=== PATIENT | female | born 1950 | race Caucasian/White ===

== ENCOUNTER → 2018-07-13 | Outpatient (CLI) | payer OTHER, BC ==
[~2018-07-13] VITALS: Ht 160 cm; Wt 61.2 kg
[~2018-07-13] MED LIST: BENTYL 10 MG CA10 M1 PO; LOPRESSOR50 PO; NEURONTIN 300300 M1 PO; SPIRONOLACTONE25 M1 PO; VALIUM5 MG PO; VITAMIN D5000 UNIT PO
--- NOTE | 2018-07-13 17:49 | P ---
[facility] [place] [address] PROCEDURE REPORT Name: YUKI GARCIAS Room #: REG [facility]#: [id number] Admission: 07/13/18 Attend Phys: Sarabjit Au MD Discharge: Date of : 46 Report #: [id number] THIS REPORT FOR: //name// CC: Sarabjit Bui MD BRIEF HISTORY: The patient is a 67-year-old woman with a family history of colon cancer, father in his 60s. PREOPERATIVE DIAGNOSIS: High risk screening. POSTOPERATIVE DIAGNOSES: 1. Diminutive polyp of proximal ascending colon. 2. Diverticulosis coli. MEDICATIONS: Deep sedation with propofol per anesthesia. SPECIMEN: Polyp from proximal ascending colon. ESTIMATED BLOOD LOSS: 3 mL. PROCEDURE: Colonoscopy to cecum and terminal ileum with biopsy. FINDINGS: Prior to propofol sedation, procedure of colonoscopy was discussed with the patient as well as potential risks, benefits and complications. She indicates she understands and desires to proceed. With the patient in the left lateral decubitus position, digital examination was completed, which revealed no abnormalities. Subsequently, the Olympus video colonoscope was introduced in the rectum and advanced under direct vision to the cecum. Done with minimal difficulty. The cecum was identified by the ileocecal valve and the appendiceal orifice. I was able to visualize the distal segment of the terminal ileum, which was inspected and noted to be unremarkable. At that point, scope was slowly withdrawn and careful circumferential views were obtained. Upon slow withdrawal of the scope, the prep was good. The mucosa was within normal limits, normal vascular pattern and normal light reflex. As we withdrew the scope, she was found to have a diminutive polyp in the very proximal ascending colon, which was removed by biopsy. The scope was further withdrawn and no additional neoplastic lesions were seen on this examination. She was noted to have diverticular disease scattered throughout the colon with a medium sized diverticula scattered about the ascending colon, in the transverse colon as well as the descending colon. There was noted to be moderately severe diverticular disease in the sigmoid colon without endoscopic evidence of diverticulitis. The mucosa was otherwise within normal limits throughout the entire colon. The scope was withdrawn in the rectum. Upon retroflexion, no abnormalities were seen. The scope was withdrawn. The patient tolerated the [address] [address] PROCEDURE REPORT Name: YUKI GARCIAS Room #: REG [facility].#: [id number] Admission: 07/13/18 Attend Phys: Sarabjit Au MD Discharge: Date of : 46 Report #: [id number] procedure well. CONDITION OF THE PATIENT UPON DISCHARGE: Following procedure, the patient drowsy, arousable and conversant. She will be discharged home when fully ambulatory. INSTRUCTIONS TO THE PATIENT AND FAMILY AT THE TIME OF DISCHARGE: We will follow up on the path of the polyp. However, in view of her personal family history, I would suggest she return in 5 years for followup colon exam. Also suggest high-fiber diet due to her diverticular disease. She does have a history of irritable bowel syndrome. She has been using dicyclomine. She may continue the dicyclomine as needed and also be cautious of potential side effects. She has had some upper abdominal pain. Please see upper endoscopy report for additional details. If she continues to have symptoms, she will return to see me in followup in the office. Last colonoscopy was more than 5 years ago. Withdrawal time from the cecum was 11 minutes and 34 seconds. <ELECTRONICALLY SIGNED> By: Sarabjit Au MD 07/13/18 1749 [id number] Sarabjit Au MD /nt
--- NOTE | 2018-07-13 17:49 | P ---
[facility] [place] [address] PROCEDURE REPORT Name: YUKI GARCIAS Room #: REG [facility]#: [id number] Admission: 07/13/18 Attend Phys: Sarabjit Au MD Discharge: Date of : 46 Report #: [id number] THIS REPORT FOR: //name// CC: Sarabjit Bui BRIEF HISTORY: The patient is a 67-year-old woman with history of increasing upper abdominal pain and bloating. She has history of irritable bowel syndrome and takes dicyclomine, symptoms have progressively worsened, in particular over the past year. PREOPERATIVE DIAGNOSIS: Worsening upper abdominal pain with burning symptoms and bloating. POSTOPERATIVE DIAGNOSES: 1. Mild, grade D esophagitis. 2. Mild diffuse erythematous gastritis. MEDICATIONS: Deep sedation with propofol per anesthesia. SPECIMENS: 1. Small bowel biopsies to rule out celiac disease. 2. Biopsies of gastritis. ESTIMATED BLOOD LOSS: 3 mL. PROCEDURE: EGD with biopsy. FINDINGS: Prior to propofol sedation, procedure of upper endoscopy discussed with the patient as well as potential risks and its complications. She indicates she understands and desires to proceed. DESCRIPTION OF PROCEDURE: With the patient in the left lateral decubitus position, the Olympus video endoscope was inserted in the cervical esophagus under direct vision without difficulty. Examination of this organ through its entire length revealed normal esophageal mucosa down the squamocolumnar junction. However, at the squamocolumnar junction 2 very small erosions were seen consistent with grade A erosive esophagitis. There was no evidence of strictures, masses, ulcers or significant hiatus hernia. There was no evidence of Keenan mucosa. The scope was advanced in the stomach, which was examined on end view as well as retroflexed views. There was erythema in the antrum, but no ulcers or erosions were seen. Upon retroflexion, no mass lesions were seen. The pylorus, duodenal bulb and postbulbar duodenal sweep were all inspected and noted to be unremarkable. At that point, the scope was slowly withdrawn and careful circumferential views confirmed the above findings. The patient tolerated the procedure well. [facility] [address] [place] [address] PROCEDURE REPORT Name: YUKI GARCIAS JORDANA Room #: REG [facility].#: [id number] Admission: 07/13/18 Attend Phys: Sarabjit Au MD Discharge: Date of : 46 Report #: [id number] CONDITION OF THE PATIENT UPON DISCHARGE: Following procedure, the patient drowsy, will be discharged home when fully ambulatory. INSTRUCTIONS TO THE PATIENT AND FAMILY AT THE TIME OF DISCHARGE: We will have the patient start omeprazole 20 mg daily. We will follow up on biopsies. She may continue her dicyclomine as tolerated. If she continues to have difficulty, she will return for followup in the office. I will proceed with colonoscopy at this time. <ELECTRONICALLY SIGNED> By: Sarabjit Au MD 07/13/18 1749 [id number] Sarabjit Au MD /nt
--- NOTE | 2018-07-16 16:06 | PATH ---
[facility] [address] [address] PATHOLOGY RPT PROCEDURE Name: YUKI GARCIAS Room #: REG [facility].#: [id number] Admission: 07/13/18 Date of : 46 Discharge: Report #: [id number] Path Case #: [id number] [facility] Accession Number: [id number] . 01 Material submitted: . PART A: SMALL BOWEL BX R/O CELIAC DISEASE C/O ABD PAIN, BLOATING PART B: BX GASTRITIS R/O H PYLORI PART C: BX PROXIMAL ASCENDING COLON POLYP . 01 Clinical history: . Pre-OP DX: Family HX colon cancer, abdominal pain, bloating Post-OP DX: Esophagitis, gastritis, colon polyp, diverticulosis . 02 Diagnosis: A. Small bowel mucosa, small bowel rule out celiac disease, endoscopic biopsy: - No diagnostic abnormalities. - Negative for villous blunting or increase in intraepithelial lymphocytes. . B. Gastric mucosa, gastritis, endoscopic biopsy: - Mild reactive gastropathy. - Negative for intestinal metaplasia or atrophy. - Negative for Helicobacter pylori (properly controlled immunohistochemical stain performed). . C. Polyp, proximal ascending colon polyp, endoscopic biopsy: - Tubular adenoma. - Negative for high-grade dysplasia. (IUV:pit 07/16/2018) QTP/07/16/2018 . 02 Electronically signed: . Opal Estrella MD, Pathologist NPI- [id number] . 01 Gross description: . A. Received in formalin labeled "Knabe, Yuki, small bowel BX, rule out celiac disease," are multiple segments of pittman soft tissue measuring 1.4 x 0.5 x 0.1 cm in aggregate dimensions. The specimen is filtered and entirely submitted in cassette A1. . B. Received in formalin labeled "Knabe, Yuki, BX gastritis, rule out H. pylori," are multiple segments of pittman soft tissue measuring 1.3 x 0.5 x 0.1 cm in aggregate dimensions. The specimen is filtered and entirely submitted in cassette B1. . [address] [address] PATHOLOGY RPT PROCEDURE Name: YUKI GARCIAS Room #: REG [facility].#: [id number] Admission: 07/13/18 Date of : 46 Discharge: Report #: [id number] Path Case #: [id number] C. Received in formalin labeled "Knabe, Yuki, BX proximal ascending colon polyp," is a single segment of pittman soft tissue measuring 0.4 cm in maximum dimension. The specimen is entirely submitted in cassette C1. (TSD; 07/13/2018) TOB/TOB . 02 Pathologist provided ICD-10: K31.9, D12.2, Z80.0, R10.9, R14.0 . 02 CPT . 159567, 408025, 692921, D96150 Specimen Comment: A courtesy copy of this report has been sent to Specimen Comment: [phone], . Specimen Comment: Report sent to / DR ARNOLD Performed at: [address], [place], [place] [id number] MD Catalino Vogt MD Phone: [phone] Performed at: [address] [id number] MD Opal Estrella MD Phone: [phone]
== END | disposition home or self-care (01) ==
LOC: GI 06:23
DX: Z12.11 Encounter for screening for malignant neoplasm of colon (principal); K31.9 Disease of stomach and duodenum, unspecified; D12.2 Benign neoplasm of ascending colon; K57.30 Diverticulosis of large intestine without perforation or abscess without bleeding; K29.70 Gastritis, unspecified, without bleeding; K20.9 Esophagitis, unspecified; I10 Essential (primary) hypertension; Z87.19 Personal history of other diseases of the digestive system; Z98.890 Other specified postprocedural states; Z80.0 Family history of malignant neoplasm of digestive organs; Z79.899 Other long term (current) drug therapy
CPT/HCPCS: 62110; 62900

== ENCOUNTER → 2018-08-29 | Outpatient (CLI) | payer OTHER | LOC: CAT 10:04 | DX: Z13.6 Encounter for screening for cardiovascular disorders (principal); E78.00 Pure hypercholesterolemia, unspecified; I25.10 Atherosclerotic heart disease of native coronary artery without angina pectoris ==

== ENCOUNTER → 2019-08-20 | Outpatient (CLI) | payer OTHER, BC | LOC: NUC 10:47 | DX: M81.0 Age-related osteoporosis without current pathological fracture (principal); Z78.0 Asymptomatic menopausal state ==

== ENCOUNTER → 2020-10-21 | Outpatient (CLI) | payer OTHER, BC | LOC: SJCVC 13:20 | PROVIDERS: ATTEND Internal Medicine Cardiovascular Disease | DX: R00.1 Bradycardia, unspecified (principal); I47.1 Supraventricular tachycardia; R55 Syncope and collapse; I10 Essential (primary) hypertension; Z79.82 Long term (current) use of aspirin; Z79.899 Other long term (current) drug therapy ==

== ENCOUNTER → 2020-11-25 | Outpatient (CLI) | payer OTHER, BC | LOC: SJCVCIMAG 07:41 | PROVIDERS: ATTEND Internal Medicine Cardiovascular Disease | DX: I08.3 Combined rheumatic disorders of mitral, aortic and tricuspid valves (principal); I49.9 Cardiac arrhythmia, unspecified; I49.5 Sick sinus syndrome; I47.1 Supraventricular tachycardia; G62.9 Polyneuropathy, unspecified; R55 Syncope and collapse; Z79.82 Long term (current) use of aspirin; Z79.899 Other long term (current) drug therapy; Z72.89 Other problems related to lifestyle ==

== ENCOUNTER → 2021-02-09 | Outpatient (CLI) | payer OTHER, BC | LOC: SJCVC 10:14 | PROVIDERS: ATTEND Internal Medicine Cardiovascular Disease | DX: I47.1 Supraventricular tachycardia (principal); R00.2 Palpitations; R55 Syncope and collapse; R07.9 Chest pain, unspecified; G62.9 Polyneuropathy, unspecified; K58.9 Irritable bowel syndrome, unspecified; Z79.82 Long term (current) use of aspirin; Z79.899 Other long term (current) drug therapy ==

== ENCOUNTER → 2021-02-25 | Outpatient (CLI) | payer OTHER, BC | LOC: SJCVCIMAG 07:24 | PROVIDERS: ATTEND Internal Medicine Cardiovascular Disease | DX: R00.0 Tachycardia, unspecified (principal); I49.3 Ventricular premature depolarization; R07.9 Chest pain, unspecified; R00.2 Palpitations; R55 Syncope and collapse; I10 Essential (primary) hypertension; G62.9 Polyneuropathy, unspecified ==